=== PATIENT | female | born 1995 | race Caucasian/White ===

== ENCOUNTER 2019-07-03 16:18 | Inpatient (IN) | payer BC, OTHER ==
--- NOTE | 2019-07-03 17:46 | ED ---
Headache - HPI Summary HPI Summary: This patient is a 23 year old female presenting to [facility] with a chief complaint of headache since 5-6 days ago, and fever which began yesterday. She states she was seen by [facility] prior to the fever which told her it was a sinus infection. She went to Urgent Care today which gave her Augmentin. She has been taking the ABx a long with Tylenol and ibuprofen. She states her headache is across the forehead and at the back of the head. She reports fatigue, nasal discharge and n/v X1. She states she is UTD on all of her vaccines. Medications reviewed, allergies noted. - History Of Current Complaint Chief Complaint: EDHeadache Stated Complaint: FEVER/HEADACHE PER PT Time Seen by Provider: 07/03/19 17:39 Hx Obtained From: Patient Onset/Duration: Started days ago Location of Headache: Frontal, Occipital - Allergies/Home Medications Allergies/Adverse Reactions: Allergies Allergy/AdvReac Type Severity Reaction Status Date / Time No Known Allergies Allergy Verified 11/27/16 10:01 PMH/Surg Hx/FS Hx/Imm Hx Endocrine/Hematology History: Denies: Hx Diabetes Cardiovascular History: Denies: Hx Hypertension, Hx Pacemaker/ICD History: Denies: Hx Renal Disease Sensory History: Denies: Hx Hearing Aid Psychiatric History: Denies: Hx Panic Disorder Infectious Disease History: No Infectious Disease History: Denies: Traveled Outside the [place] in Last 30 Days - Family History Known Family History: Negative: Cardiac Disease - Social History Occupation: Student Lives: Dormitory/Roommates Alcohol Use: Occasionally Review of Systems Positive: Fever, Fatigue Positive: Nasal Discharge Positive: Vomiting, Nausea All Other Systems Reviewed And Are Negative: Yes Physical Exam - Summary Physical Exam Summary: Constitutional: Well-developed, Well-nourished, Alert. (-) Distressed Skin: Warm, Dry HENT: Normocephalic; Atraumatic Eyes: Conjunctiva normal Neck: (-) JVD, (-) Stridor, (-) Tracheal deviation. Limited ROM on flexion. Cardio: Rhythm regular, rate normal, Heart sounds normal; Intact distal pulses; Radial pulses are 2+ and symmetric. (-) Murmur Pulmonary/Chest wall: Effort normal. (-) Respiratory distress, (-) Wheezes, (-) Rales Abd: Soft, (-) tenderness, (-) Distension, (-) Guarding, (-) Rebound Musculoskeletal: (-) Edema Lymph: (-) Cervical adenopathy Neuro: Alert, Oriented x3 Psych: Mood and affect Normal Triage Information Reviewed: Yes Vital Signs On Initial Exam: Initial Vitals Temp Pulse Resp BP Pulse Ox 99.6 F 123 14 129/87 96 07/03/19 16:20 07/03/19 16:20 07/03/19 16:20 07/03/19 16:20 07/03/19 16:20 Vital Signs Reviewed: Yes Procedures - Sedation Patient Received Moderate/Deep Sedation with Procedure: No - Lumbar Puncture Lower Midline Iliac Crest Position: Sitting Aseptic Technique: Local Anesthesia, Lidocaine Anesthesia Used: 1.0% Lido Spinal Needle Used: 22 Gauge Lumbar Puncture Note: Kim needle. One attempt with clear fluid. Diagnostics - Vital Signs Vital Signs Temp Pulse Resp BP Pulse Ox 07/03/19 16:20 99.6 F 123 14 129/87 96 - Laboratory Result Diagrams: 07/03/19 18:05 07/03/19 18:05 Lab Statement: Any lab studies that have been ordered have been reviewed, and results considered in the medical decision making process. - Radiology CXR Radiology Interpretation Completed By: ED Physician Summary of Radiographic Findings: No acute process. Pending official radiologist report. Re-Evaluation - Re-Evaluation First Eval Re-Evaluation Time: 18:49 Change: Improved Comment: Heartrate is now 100 BPM. Patient states she feels better after receiving Benadryl and Reglan. Headache Course/Dx - Course Course Of Treatment: Patient is here with headache, cough, vomiting, fever over the past 5 days. Patient has been seen at [facility] and diagnosed with viral sinusitis. Patient was seen at urgent care today and diagnosed with bacterial sinusitis and started on Augmentin. Patient took 1 dose of that prior to arrival. Patient has Katie had monosodium that was not tested. Patient was tachycardic and febrile upon arrival but overall well-appearing. Patient did have some neck stiffness but had negative Brudzinski's or Kernig's sign. However, given patient's fever, headache and neck stiffness a workup was performed. Patient had blood performed which showed a white count of 13 and elevated CRP of 140. Patient had a chest x-ray which showed no evidence of pneumonia. Patient was given 2 L of IV fluid, Tylenol, Reglan, and Benadryl. Patient's heart rate was downtrending by the time of sign out. Patient had CSF studies sent as well which are pending. Patient sent to Dr. Schwartz pending CSF studies and patient improvement. - Diagnoses Provider Diagnoses: Fever, Headache, Cough, Tachycardia Discharge ED - Sign-Out/Discharge Documenting (check all that apply): Sign-Out Patient Signing out patient TO: Laurie Schwartz - At shift change 1900 pending LP results - Discharge Plan Referrals: No Primary Care Phys,NOPCP [Primary Care Provider] - - Attestation Statements Document Initiated by Scribe: Yes Documenting Scribe: Bienvenido Brown Provider For Whom Aziza is Documenting (Include Credential): Fran Oglesby MD Scribe Attestation: Bienvenido Lazo, scribed for Fran Oglesby MD on 07/03/19 at 1854. Scribe Documentation Reviewed: Yes Provider Attestation: The documentation as recorded by the Bienvenido gallegos accurately reflects the service I personally performed and the decisions made by , Fran Oglesby MD Status of Scribe Document: Viewed
[2019-07-03] MEDS ORDERED: diPHENhydraMINE IV* 50 MG/ML 1 ml VIAL (BENADRYL) IV ONE (17:49)
[2019-07-03] MEDS ORDERED: Acetaminophen TAB* 325 MG PO ONE (17:49)
[2019-07-03] MEDS ORDERED: Metoclopramide IV* 5 MG/ML 2 ML VIAL IV ONE (17:49)
[2019-07-03] MEDS ORDERED: NS 0.9% 1000 ML** 1,000 ML IV ONE ×2 (17:49→18:46)
[2019-07-03 18:21] LABS: ABS Lymphocytes 0.5 10^3/ul (1.0-4.8); ABS Monocytes 1.2 10^3/ul (0-0.8); ABS Neutrophils 11.5 10^3/ul (1.5-7.7); Hematocrit 41 % (35-47); Hemoglobin 14.1 g/dL (12.0-16.0); Lymphocyte % 3.9 %; Mean Corpuscular HGB Conc 34 g/dL (31-36); Mean Corpuscular Hemoglobin 31 pg (27-31); Mean Corpuscular Volume 89 fL (80-97); Mean Platelet Volume 9.6 fL (7.4-10.4); Platelet Count 203 10^3/uL (150-450); Red Blood Count 4.58 10^6 /uL (3.70-4.87); Red Cell Distribution Width 13 % (10-15); White Blood Count 13.2 10^3/uL (3.5-10.8)
[2019-07-03 18:40] LABS: Albumin 4.4 g/dL (3.2-5.2); Anion Gap 10 mmol/L (2-11); CO2 Carbon Dioxide 22 mmol/L (22-32); Calcium 9.4 mg/dL (8.6-10.3); Chloride 100 mmol/L (101-111); Potassium 3.8 mmol/L (3.5-5.0); Sodium 132 mmol/L (135-145)
[2019-07-03 18:46] LABS: ALT 11 U/L (7-52); AST 14 U/L (13-39); Albumin/Globulin Ratio 1.4 (1-3); Alkaline Phosphatase 73 U/L (34-104); BUN/Creatinine Ratio 4.9 (8-20); Blood Urea Nitrogen 4 mg/dL (6-24); C Reactive Protein 140.48 mg/L (<8.01); EGFR Non-African American 89.3 (>60); Globulin 3.2 g/dL (2-4); Glucose 138 mg/dL (70-100); Total Protein 7.6 g/dL (6.4-8.9)
[2019-07-03 18:48] LABS: Body Fluid Source Cerebral Spinal
[2019-07-03 18:51] LABS: HCG Pregnancy < 0.60 mIU/mL
[2019-07-03 19:04] LABS: Influenza A Molecular NEGATIVE (Negative); Influenza B Molecular NEGATIVE (Negative)
--- NOTE | 2019-07-03 19:07 | ED ---
Progress - Progress Note Progress Note: This patient was signed out from Dr. Oglesby to Dr. Schwartz at shift change at 1900, pending disposition, awaiting spinal tap results. Cerebral Spinal Fluid results obtained. Fluid WBC is 1552, CSF protein is 149, and CSF glucose is 54. The patient will be admitted with Dx of bacterial meningitis. Re-Evaluation - Re-Evaluation First Eval Re-Evaluation Time: 18:49 Change: Improved Comment: Heartrate is now 100 BPM. Patient states she feels better after receiving Benadryl and Reglan. Course/Dx - Course Course Of Treatment: 23 year old f signed out at change of shift with GRACIA, neck pain, and fever. LP results pending. CSF consistent with bacterial meningitis. Precautions initiated. Pt started on dexamethasone and recephin. Referred to hospitalist for admission. - Diagnoses Provider Diagnoses: Bacterial meningitis, Headache, Neck pain, Fever - Provider Notifications Discussed Care Of Patient With: Frannie Balderas Time Discussed With Above Provider: 19:51 Instructed by Provider To: Other - Discussed case with Dr. Balderas, who accepts pt for admission. Discharge ED - Sign-Out/Discharge Documenting (check all that apply): Patient Departure - Admit - Discharge Plan Condition: Stable Disposition: ADMITTED TO [facility] - Billing Disposition and Condition Condition: STABLE Disposition: Admitted to [facility] - Attestation Statements Document Initiated by Aziza: Yes Documenting Scribe: Xochilt Guevara Provider For Whom Aziza is Documenting (Include Credential): Dr. Laurie Schwartz MD Scribe Attestation: Xochilt Lazo scribed for Dr. Laurie Schwartz MD on 07/04/19 at 0602. Scribe Documentation Reviewed: Yes Provider Attestation: The documentation as recorded by the Xochilt gallegos accurately reflects the service I personally performed and the decisions made by me, Dr. Laurie Schwartz MD Status of Scribe Document: Viewed
[2019-07-03 19:11] LABS: CSF Glucose 54 mg/dL (40-70)
[2019-07-03 19:38] LABS: Body Fluid Mono 20 %
[2019-07-03] MEDS ORDERED: cefTRIAXone(*) 2 GM in NS 0.9% 100 ML* 100 ML IVPB ONE (19:46)
[2019-07-03] MEDS ORDERED: Dexamethasone IV* 4 MG/ML 5 ML VIAL (20 MG) IVPB ONE (19:49)
[2019-07-03] MEDS ORDERED: Ibuprofen TAB* 400 MG PO ONE (19:52)
[2019-07-03 19:55] LABS: Urine Appearance Clear; Urine Bilirubin Negative (Negative); Urine Blood 1+ (Negative); Urine Color Straw; Urine Glucose Negative (Negative); Urine Ketones 2+ (Negative); Urine Nitrite Negative (Negative); Urine Protein Negative (Negative); Urine Specific Gravity 1.005 (1.010-1.030); Urine Urobilinogen Negative (Negative)
[2019-07-03 19:59] LABS: Urine Bacteria Absent (Absent); Urine Red Blood Cell 1+(3-5/hpf) (Absent); Urine Squamous Epithelial Cell Present (Absent); Urine White Blood Cell Absent (Absent)
[2019-07-03] MEDS ORDERED: Dexamethasone IV* 4 MG/ML 1 ML (4 MG) IV SLOW PU ONE (20:00)
[2019-07-03] MEDS ORDERED: NS 0.9% 1000 ML** 1,000 ML IV SCH (20:15)
[2019-07-03] MEDS ORDERED: Vancomycin(*) 1,000 MG in NS 0.9% 250 ML* 250 ML IVPB ONE (20:17)
[2019-07-03 20:21] LABS: Urine Benzodiazepine Screen None Detected (None Detect); Urine Opiates Screen None Detected (None Detect)
[2019-07-03] MEDS ORDERED: ValACYclovir (*) 1 GM TAB PO ONE (21:00)
[2019-07-03] MEDS ORDERED: Acyclovir IV(*) 500 MG in NS 0.9% 100 ML* 100 ML IVPB SCH (21:00)
[2019-07-03] MEDS ORDERED: Vancomycin per Pharmacy* NOTE FOLLOW UP SCH (21:00)
--- NOTE | 2019-07-03 21:07 | HP ---
History of Present Illness - History of Present Illness Reason for Visit: GRACIA, fever History of Present Illness: 23 yo female presented with severe GRACIA and a fever. Severity of her GRACIA peaked last night but she has been having constitutional symptoms for a few days prior. [facility] and was told to have a viral infection. She arrived in the ED and had fever of 102. Meningeal signs noted which prompted an LP and early treatment with dexamethasone and Rocephin. LP came back positive. Significant other in the room with her, pt is a college student who lives in a house with 2 other roommates. - Past Social History Alcohol: Occassional Drugs: None Lives: Friends Domestic Violence: Negative Review of Systems - Measurements Intake and Output: Intake and Output Last 24 Hours 07/01/19 07/02/19 07/03/19 07/04/19 06:59 06:59 06:59 06:59 Intake Total 1999 Balance 1999 Weight 123 lb Intake: IV Fluids 1999 - Review of Systems Constitutional Symptoms: Positive: Weakness, Fatigue, Fever Negative: Weight Gain, Weight Loss, Night Sweats, Unexplained Falls, Other Dermatology: Negative: Normal, Rash, Skin Lesions, Cancer, Skin Lumps, Other HEENT: Negative: Normal, Change in Hearing, Vertigo, Dental Problems, Tinnitus, Sinus Problem, Other Eyes: Negative: Normal, Change in Vision, Double Vision, Eye Pain, Glaucoma, Cataract, Contacts or Glasses, Other Thyroid: Negative: Normal, Goiter, Thyroid Nodule, Cold Intolerance, Heat Intolerance , Sweatiness, Tremor, Frequent Defecation, Constipation, Palpitations, Primary Hypothyroidism, Primary Hyperthyroidism, Weight Loss, Weight Gain, Change in Skin/Hair, Change in Menstruation, Radiation Exposure, Other Pulmonary: Negative: Normal, Cough, Sputum, Hemoptysis, Wheezing, Respiratory Distress, Shortness of Breath, COPD, Asthma, Exercise Intolerance, Home Oxygen, Other Cardiology: Negative: Normal, Chest Pain, Shortness of Breath, Palpitations, Swelling of Ankles, Peripheral Vascular Dis, Edema, Faintness, Syncope, Claudication, Proximal NocturnalDyspnea, Orthopnoea, Other Gastroenterology: Negative: Normal, Abdominal Pain, Nausea, Vomiting, Anorexia, Indigestion, Difficulty Swallowing, Heartburn, Constipation, Diarrhea, Blood in Stools, Change in Bowel Habits, Haematemesis, Melena, Other Genital - Urinary: Negative: Normal, Dysuria, Hematuria, Polyuria, Nocturia, Other Musculoskeletal: Negative: Joint Pain, Joint Stiffness, Arthritis, Osteoporosis, Low Back Pain , Sciatica, Joint Deformities, Kyphoscoliosis, Other Endocrinology: Negative: Normal, Thyroid Problems, Adrenal Problems, Gonadal Problems, Family Hx Endocrine Disorders, Obesity, Diabetes Mellitus, Hyperglycemia, Hx Hypoglycemia, Diabetic Foot Ulcers, Calluses, Hirsutism, Menstrual Abnormalities , Polydipsia, Polyuria, Gonadal Problems, Gynecomastia, Pituitary disease, Other Hematologic/Lymphatic: Negative: Anemia, Easy Bruising, Hx Leukemia, Hx Lymphoma, Use of Anticoagulant, Use of Antiplatelet Drugs, Other Neurology: Positive: Headache, Migraines Negative: Normal, Change in Vision, Diplopia, Dizziness, Change in Balancing , Change in Coordination, Change in Memory, Change in Speech, Change in Sphincter Function, Change in Walking, Numbness\Paresthesiae, Unexplained Weakness, Hx of Stroke\TIA, Hx of Seizures, Other Psychiatry: Negative: Normal, Depression, Anxiety, Depressed Mood, Anhedonia, Sexual Dysfunction, Weight Change, Guilt Feelings, Tearfulness, Unusual Fatigue, Unusual Anxiety, Suicidal Ideation, Hypomania, Eating Disorders, Other Objective Active Medications: Acetaminophen (Tylenol Tab*) 650 mg PO Q4H PRN PRN Reason: MILD PAIN or TEMP > 100.4 Heparin Sodium (Porcine) (Heparin Vial(*)) 5,000 units SUBCUT Q8HR [facility] Sodium Chloride (Ns 0.9% 1000 Ml) 1,000 mls @ 1,000 mls/hr IV PER RATE [facility] Stop: 07/03/19 21:14 Vancomycin HCl 1,000 mg/ (Sodium Chloride) 250 mls @ 166.667 mls/hr IVPB ONCE ONE; Protocol Stop: 07/03/19 21:46 Pharmacy Consult (Vancomycin Per Pharmacy*) 1 note FOLLOW UP .VANC PER PHARMACY [facility]; Protocol Vital Signs - 8 hr 07/03/19 07/03/19 07/03/19 16:20 17:47 17:48 Temperature 99.6 F Pulse Rate 123 112 113 Respiratory 14 Rate Blood Pressure 129/87 138/91 (mmHg) O2 Sat by Pulse 96 100 100 Oximetry 07/03/19 07/03/19 07/03/19 17:51 18:00 18:27 Temperature 102 F Pulse Rate 108 Respiratory 26 23 Rate Blood Pressure 124/81 (mmHg) O2 Sat by Pulse 99 Oximetry 07/03/19 07/03/19 07/03/19 18:48 19:00 19:18 Temperature Pulse Rate 106 98 105 Respiratory 22 21 21 Rate Blood Pressure 121/85 121/79 (mmHg) O2 Sat by Pulse 99 100 100 Oximetry 07/03/19 07/03/19 07/03/19 19:40 19:48 20:00 Temperature 101.1 F Pulse Rate 99 117 Respiratory 27 16 Rate Blood Pressure 118/74 (mmHg) O2 Sat by Pulse 100 99 Oximetry Oxygen Devices in Use Now: None Appearance: NID Eyes: No Scleral Icterus, PERRLA Ears/Nose/Mouth/Throat: Clear Oropharnyx, Mucous Membranes Moist Neck: - - some nuchal rigidity Respiratory: Symmetrical Chest Expansion and Respiratory Effort, Clear to Auscultation, Clear to Percussion Cardiovascular: NL Sounds; No Murmurs; No JVD Abdominal: NL Sounds; No Tenderness; No Distention, No Hepatosplenomegaly Lymphatic: No Cervical Adenopathy Extremities: No Edema, No Clubbing, Cyanosis Skin: No Rash or Ulcers Neurological: Alert and Oriented x 3, NL Sensation, NL Gait, NL Muscle Strength and Tone Result Diagrams: 07/03/19 18:05 07/03/19 18:05 Microbiology and Other Data: Microbiology 07/03/19 18:18 CSF Gram Stain (Tube 3) - Preliminary Cerebral Spinal Fluid Assess/Plan/Problems-Billing Assessment: - Patient Problems (1) Acute bacterial meningitis Current Visit: Yes Status: Acute Code(s): G00.9 - BACTERIAL MENINGITIS, UNSPECIFIED SNOMED Code(s): 45570965 Comment: LP likely bacterial infection. No evidence of neurological dysfunction Steroids, vanco, ceftriaxone and acyclovir pending final LP results. NPO except for meds. Will have her on bedrest following LP (2) Full code status Current Visit: Yes Status: Acute Code(s): Z78.9 - OTHER SPECIFIED HEALTH STATUS SNOMED Code(s): 837799332 (3) DVT prophylaxis Current Visit: Yes Status: Acute Code(s): Z29.9 - ENCOUNTER FOR PROPHYLACTIC MEASURES, UNSPECIFIED SNOMED Code(s): 029442701
[2019-07-03] MEDS: Heparin VIAL(*) 5000 UNITS/ML VIAL (FIVE THOUSAND) SUBCUT SCH (22:42)
[2019-07-04] MEDS: Acetaminophen TAB* 325 MG PO PRN ×3 (02:59→21:10)
[2019-07-04] MEDS: Vancomycin(*) 1,000 MG in NS 0.9% 250 ML* 250 ML IV SCH ×3 (05:39→21:09)
[2019-07-04] MEDS: Heparin VIAL(*) 5000 UNITS/ML VIAL (FIVE THOUSAND) SUBCUT SCH (05:39)
[2019-07-04] MEDS: ValACYclovir (*) 1 GM TAB PO SCH ×3 (05:40→23:06)
[2019-07-04 07:10] LABS: ABS Lymphocytes 0.8 10^3/ul (1.0-4.8); ABS Neutrophils 10.8 10^3/ul (1.5-7.7); Hematocrit 37 % (35-47); Hemoglobin 12.5 g/dL (12.0-16.0); Mean Corpuscular HGB Conc 34 g/dL (31-36); Mean Corpuscular Hemoglobin 30 pg (27-31); Mean Corpuscular Volume 89 fL (80-97); Mean Platelet Volume 9.9 fL (7.4-10.4); Platelet Count 186 10^3/uL (150-450); Red Cell Distribution Width 13 % (10-15); White Blood Count 12.6 10^3/uL (3.5-10.8)
[2019-07-04 07:22] LABS: Albumin 3.7 g/dL (3.2-5.2); Calcium 8.9 mg/dL (8.6-10.3); Potassium 3.8 mmol/L (3.5-5.0); Total Bilirubin 0.2 mg/dL (0.2-1.0)
[2019-07-04 07:28] LABS: Albumin/Globulin Ratio 1.4 (1-3); BUN/Creatinine Ratio 7.9 (8-20); EGFR African American 144.3 (>60); EGFR Non-African American 119.3 (>60); Globulin 2.6 g/dL (2-4); Total Protein 6.3 g/dL (6.4-8.9)
[2019-07-04] MEDS: cefTRIAXone(*) 2 GM in NS 0.9% 100 ML* 100 ML IVPB SCH ×2 (10:17→22:51)
--- NOTE | 2019-07-04 12:02 | PN ---
Subjective Date of Service: 07/04/19 Interval History: Patient continues to have headache, bifrontal, neck stiffness. Denies fever. Has some photophobia. Family History: Unchanged from Admission Social History: Findings - Senior at , env studies. Lives with 2 other students in house, visited other friends ar for dinner Past Medical History: Unchanged from Admission Objective Active Medications: Current Medications Acetaminophen (Tylenol Tab*) 650 mg PO Q4H PRN PRN Reason: MILD PAIN or TEMP > 100.4 Last Admin: 07/04/19 11:27 Dose: 650 mg Heparin Sodium (Porcine) (Heparin Vial(*)) 5,000 units SUBCUT Q8HR [facility] Last Admin: 07/04/19 05:39 Dose: 5,000 units Ceftriaxone Sodium 2 gm/ (Sodium Chloride) 100 mls @ 200 mls/hr IVPB Q12H [facility] Last Admin: 07/04/19 10:17 Dose: 200 mls/hr Vancomycin HCl 1,000 mg/ (Sodium Chloride) 250 mls @ 166.667 mls/hr IV Q8H [facility] Last Admin: 07/04/19 05:39 Dose: 166.667 mls/hr Valacyclovir HCl (Valtrex 1 Gm(*)) 2 gm PO Q8HR [facility] Last Admin: 07/04/19 05:40 Dose: 2 gm Vital Signs - 8 hr 07/04/19 07/04/19 07/04/19 04:00 04:57 07:39 Temperature 38.2 C 37.7 C Pulse Rate 108 Respiratory 16 16 Rate Blood Pressure 113/69 (mmHg) O2 Sat by Pulse 100 Oximetry 07/04/19 08:23 Temperature 36.9 C Pulse Rate 89 Respiratory 17 Rate Blood Pressure 103/58 (mmHg) O2 Sat by Pulse 100 Oximetry Oxygen Devices in Use Now: None Appearance: alert, no distress Eyes: No Scleral Icterus, PERRLA Ears/Nose/Mouth/Throat: NL Teeth, Lips, Gums, Clear Oropharnyx Neck: NL Appearance and Movements; NL JVP, Trachea Midline Respiratory: Symmetrical Chest Expansion and Respiratory Effort, Clear to Auscultation Cardiovascular: NL Sounds; No Murmurs; No JVD, RRR Abdominal: NL Sounds; No Tenderness; No Distention, No Hepatosplenomegaly Neurological: Alert and Oriented x 3, - - positive Brudzinski's sign Lines/Tubes/Other Access: Clean, Dry and Intact Peripheral IV Nutrition: Taking PO's Result Diagrams: 07/04/19 06:44 07/04/19 06:44 Additional Lab and Data: Laboratory Tests 07/03/19 07/03/19 18:18 18:18 Fluid Source Cerebral spinal Fluid Color Colorless Fluid Appearance Cloudy Fluid WBC 1552 H* Fluid RBC 32 Fluid Tot Cell Count 100 Fluid Neutrophils 74 Fluid Lymphocytes 6 Fluid Monocytes 20 CSF Glucose 54 CSF Total Protein 149 H Microbiology and Other Data: Microbiology 07/03/19 18:18 CSF Gram Stain (Tube 3) - Preliminary Cerebral Spinal Fluid Assess/Plan/Problems-Billing Assessment: 23 year old with classic bacterial meningitis presentation, CSF pleocytosis - Patient Problems (1) Acute bacterial meningitis Current Visit: Yes Status: Acute Priority: Medium Code(s): G00.9 - BACTERIAL MENINGITIS, UNSPECIFIED SNOMED Code(s): 75661553 Comment: -No evidence of neurological dysfunction -responding well to ceftriaxone, vanco. -Using oral valcyclovir due to shortage of IV acyclovir -Will discuss whether steroids indicated with ID and neurology. (2) DVT prophylaxis Current Visit: Yes Status: Acute Priority: Low Code(s): Z29.9 - ENCOUNTER FOR PROPHYLACTIC MEASURES, UNSPECIFIED SNOMED Code(s): 002442999 Comment: low risk, heparin DCed Status and Disposition: inpatient
--- NOTE | 2019-07-04 14:23 | PN ---
Progress Note - Progress Note Date of Service: 07/04/19 Note: Spoke with micro lab, 2 bottles blood cultures growing gram neg coccobacilli, possible Haemophilus influenza or pseudomonas or HACEK organism. Spoke with Dr. King mason dexamethasone, he will see patient for consult. Spoke with Dr. Reno re ID consult, he advised continue dexamethasone since it was started in ED and it may prevent complications of H flu.
[2019-07-04] MEDS ORDERED: Iohexol 300* (CONTRAST) 10 ML SDV IV ONE (15:55)
[2019-07-04] MEDS: Dexamethasone IV* 4 MG/ML 1 ML (4 MG) IV SLOW PU SCH ×2 (16:26→21:11)
--- NOTE | 2019-07-04 21:37 | CONS ---
CC: [facility]; George Reno MD; Aram Parker MD * CONSULTATION REPORT: DATE OF CONSULT: 07/04/19 DATE OF ADMISSION: 07/03/19 PRIMARY CARE PROVIDER: Unknown. REASON FOR CONSULTATION: Meningitis. HISTORY OF PRESENT ILLNESS: Ms. Wharton is a very nice 23-year-old female who is currently a senior at [employer]. She reports developing what she felt was a sinus infection about a week ago. The symptoms persisted. She was initially seen at [facility] and it was felt that she likely had a viral infection. She subsequently continued to develop pain and developed fever on Friday. Yesterday, she presented to the ER with a fever of up to 102. She noted worsening headache, it was frontal in nature. She also noted neck stiffness, some photophobia. She did have some vomiting several days ago and some nausea yesterday. She notes no sick contacts that she is aware of, no insect bite, no animal bites, no recent travel. Other than the sinus infection , she denies any recent ear infections or sore throat. In the ER, an LP was done. The LP showed a white count of 1552, 32 RBCs, total cell count of 100, neutrophils 74%, lymphocytes 6, monocytes 20, protein of 149, glucose of 54. In addition, she had blood cultures drawn yesterday which are growing gram- negative coccobacilli. In addition, while her Gram stain on the CSF was negative for organisms, she does have Haemophilus influenzae 3+ in the spinal fluid. She was admitted with an elevated white count of 12.6. Urine was positive for 2+ ketones, 1+ blood, 1+ rbc's. Her influenza A and B rapid tests were negative. The patient reports no focal numbness, tingling, or weakness. She reports no seizure-like activity. She reports no tingling, numbness, word finding difficulties, or other neurologic symptoms other than the headache. She states that the headache is much improved this afternoon. This morning, she states that it was waxing and waning from a 2 to 3 to a 7 or 8; currently, it is a 2 to 3. She does have some pain with flexion and extension of her neck. She notes no rashes, no subungual hemorrhages. She denies any other significant past medical history. PAST MEDICAL HISTORY: As noted above. She does take control pills. MEDICATIONS: At home include Loestrin 1 daily. Medications started in the ER include: 1. Dexamethasone 4 mg IV q.6 hours. 2. Ceftriaxone 2 g q.12 hours. 3. Vancomycin 1000 mg q.8 hours. 4. Valacyclovir 2 g p.o. q.8 hours. ALLERGIES: She has no known drug allergies. SOCIAL HISTORY: She is a senior at [employer]. She drinks alcohol occasionally. No drug use. No smoking. She lives in a dorm with several friends. REVIEW OF SYSTEMS: In 14-organ systems is as noted above, otherwise negative. PHYSICAL EXAM: Temperature this morning of 108. Her T-max since admission has been 102. Her most recent temperature is 99.7. Heart rate of 89 to 108, respiratory rate of 16 to 17, O2 saturation 98% to 100%, blood pressure 103/58 to 113/69. In general, she is a well-nourished, well-developed female. She is in no acute distress. She is sitting in her room. Her head is up. The lights are off, but she does not appear to be in any great discomfort. She smiles. She is talking to her parents on the computer by [employer]. She is pleasant and answers all questions appropriately. HEENT: She is normocephalic, atraumatic. Sclerae are anicteric. Mucous membranes are moist. Oropharynx is clear. Nares are patent. Neck is stiff. She has some pain with flexion and extension. She has no pain with flexion at her knees or extension of her leg. She has no pain with abrupt upward movements of her feet. No carotid bruits. Chest: Clear to auscultation bilaterally. Cardiovascular: Regular rate and rhythm. Abdomen is nontender. Extremities: No clubbing, cyanosis, or edema. Her skin is warm and dry. There are no lesions or rashes present. No hemorrhaging present. On neurologic exam, she is awake, alert, and oriented x3. Her speech is fluent. There is no dysarthria. Repetition is intact. Recall of recent and remote events is intact. Vocabulary is intact. Mood is dysthymic. Affect, mood congruent. Cranial nerves: Pupils are equally round and reactive to light and accommodation. Extraocular muscles are intact. There is no diplopia. No nystagmus. Visual chapa are full to confrontation. Her face is symmetric. Her facial sensation is intact to light touch. Her hearing is intact bilaterally. No tinnitus. Her palate raises symmetrically. Her tongue is midline. Motor Exam: She spontaneously moves all extremities antigravity. There is no drift. 5/5 throughout. Tone is normal. Finger-to- nose, rapid alternating movements are intact without dysdiadochokinesia or ataxia. There is no resting tremor. There is no intention or postural tremor. DTRs are 2+ in the upper extremities, biceps, and brachioradialis, 3+ at the patella bilaterally, 2+ at the ankles. Equivocal Babinski's bilaterally. Sensation is intact to light touch and pinprick throughout. There are no focal deficits. While I did not test gait, she has been getting out and walking around. She had no papilledema on funduscopic examination. DIAGNOSTIC STUDIES/LAB DATA: CSF studies as noted above. She also had other than white count of 12.6 with absolute neutrophils of 10.8, absolute lymphocytes of 0.8, absolute monocytes of 1.0. Her CBC with diff was normal. Comprehensive metabolic profile this morning with a BUN of 5, glucose of 134, AST of 10. Her C-reactive protein on admission was 140.48. Total protein of 6.3. Beta hCG of less than 0.60. Sodium yesterday was 132, now 136. Potassium of 3.8. Imaging: She did have a prior brain MRI from 12/03/16, show mild sinus mucosal inflammatory disease with air-fluid level in the left maxillary sinus. In a correct clinical setting, this may represent acute sinusitis. Otherwise, unremarkable MRI of the brain. I have ordered a CT scan of the head. She had a chest x-ray done yesterday which showed no active cardiopulmonary disease. ASSESSMENT AND PLAN: Ms. Wharton is a 23-year-old female with no significant past medical history, on control pills. She is a [employer] senior who presents with several-day history of worsening headaches, some fevers up to 102 , neck pain and stiffness, photophobia, some nausea and vomiting, presented to the hospital where an LP showed significantly elevated white count, elevated protein, normal glucose, subsequently cultures have grown H. flu in the spinal fluid and suspected gram- negative coccobacilli in the blood. All of this is consistent with H. flu meningitis. She was started on empiric therapy in ER with vanc, ceftriaxone, and valacyclovir. There is a critical shortage of acyclovir in the country, but she was placed on valacyclovir. She was also started on dexamethasone. ID has been consulted and will see the patient tomorrow. Currently, she is improving. She looks fairly good. She is pleasant , smiling. She does not appear to be in any major discomfort. The pain is improved. She has no focal neurologic deficits and seems to be doing well. For now, I would continue her triple antibiotic therapy. We will need to make sure that HSV was sent on the spinal fluid. Lyme C and S is pending and HSV is pending in the fluid as well. I have ordered a CT of the brain with and without contrast to make sure that there is no structural lesions or abscesses that may be contributing to her symptoms. The evidence on dexamethasone is unclear. Typically, once an organism is obtained, assuming it is not strep pneumo, then dexamethasone is usually discontinued. With that said, she did receive dexamethasone at the time of her antibiotics and the dexamethasone had been shown in general to help prevent some of the neurologic complications associated with meningitis. I think for now it is okay to continue the dexamethasone as an adjunct therapy. This is something we can discuss with ID tomorrow, but if in fact H. flu is confirmed in the blood and spinal fluid, I would consider stopping the steroids after a day or two. Otherwise, treatment is going to be symptomatic. I would make sure she is hydrated, control her pain , treat her fevers. Infectious Disease will remain on board. Neurology will continue to follow closely and make further recommendations as necessary. Dr. Hallie Monique will be coming on service tomorrow and I will sign off to him. Thank you for the opportunity to participate in the care of this very interesting patient. [id number]/[facility] #: [id number] [facility]ITAL[facility]
[2019-07-05] MEDS ORDERED: Melatonin 3 MG TAB PO ONE (02:31)
[2019-07-05] MEDS: Dexamethasone IV* 4 MG/ML 1 ML (4 MG) IV SLOW PU SCH ×2 (02:50→09:38)
[2019-07-05] MEDS: Vancomycin(*) 1,000 MG in NS 0.9% 250 ML* 250 ML IV SCH (05:29)
[2019-07-05] MEDS: ValACYclovir (*) 1 GM TAB PO SCH (05:34)
[2019-07-05] MEDS: Acetaminophen TAB* 325 MG PO PRN (06:25)
[2019-07-05 07:57] LABS: ABS Lymphocytes 1.1 10^3/ul (1.0-4.8); ABS Monocytes 0.5 10^3/ul (0-0.8); ABS Neutrophils 12.3 10^3/ul (1.5-7.7); Hematocrit 37 % (35-47); Hemoglobin 12.6 g/dL (12.0-16.0); Lymphocyte % 8.1 %; Mean Corpuscular HGB Conc 34 g/dL (31-36); Mean Corpuscular Hemoglobin 30 pg (27-31); Mean Corpuscular Volume 89 fL (80-97); Mean Platelet Volume 9.5 fL (7.4-10.4); Platelet Count 239 10^3/uL (150-450); Red Blood Count 4.18 10^6 /uL (3.70-4.87); Red Cell Distribution Width 13 % (10-15)
--- NOTE | 2019-07-05 08:00 | PN ---
Hospitalist Progress Note Date of Service: 07/05/19 S/IE: Tata Wharton is a 23 year-old woman with no significant medical history who presented to the ED on Friday evening (07/03/19) with a CC of severe headache and fever. She was admitted on Friday evening and has been diagnosed with and is being treated for acute bacterial meningitis. This is hospital day 3. There were no acute overnight events. Feeling much better. Still complaining of mild neck stiffness, headache and back soreness. Overall pain rated 4/10. No fever / chills since yesterday. No nausea / vomiting. Inquiring about whether or not her boyfriend should be receiving prophylactic medication. Per Dr. Reno (ID nursing consultant), close contact prophylaxis is not necessary in this case of H. Influenza meningitis with all close contacts being healthy young adults. Dr. Reno ordered a midline catheter be placed to facilitate 10 days of home ceftriaxone infusions and advised that vancomycin, valacyclovir and dexamethasone should be stopped now that the infection is confirmed to be H. Influenzae. Patient has good understanding of her condition, treatment regimen and prognosis. She is concerned about missing school and upcoming exams and was advised that she would need to contact her school directly regarding her absence and that she will be provided with a doctor's note. Likely looking at discharge tomorrow provided condition continues to improve, midline is placed and necessary arrangements for home IV ABX infusions are made. O: PE: 3 Temp Pulse Resp BP Pulse Ox 97.9 F 88 20 125/70 99 07/05/19 09:36 07/05/19 09:36 07/05/19 09:36 07/05/19 09:36 07/05/19 09:36 General: Resting in bed, AAOx4, not in acute distress. Pleasantly cooperates with interview and examination. Skin warm and dry. HEENT: Head normocephalic, atraumatic. Hearing grossly normal. PERRLA. EOMI. Vision grossly normal. Nares patent. Oral mucosa pink and moist. Good dentition. Uvula midline. No thyromegaly or thyroid nodules. No lymphadenopathy. Trachea midline. No JVD. Chest: Breathing unlabored with normal symmetric chest wall motion. Lungs clear to auscultation b/l. Normal heart rhythm. Normal S1/S2. No murmur. Abdomen: Soft, non-distended, non-tender. Some mild general discomfort to palpation. Positive bowel sounds. Extremities: UE and LE distal CMS intact b/l. 5/5 strength on hand golf caddy and hip/ plantar/dorsi flexion. No edema. Recent Labs: 3 07/05/19 07/05/19 07:37 07:37 WBC 14.0 H RBC 4.18 Hgb 12.6 Hct 37 MCV 89 MCH 30 MCHC 34 RDW 13 Plt Count 239 MPV 9.5 Neut % (Auto) 87.9 Lymph % (Auto) 8.1 [place] % (Auto) 3.9 Eos % (Auto) 0.0 Baso % (Auto) 0.1 Absolute Neuts (auto) 12.3 H Absolute Lymphs (auto) 1.1 Absolute Monos (auto) 0.5 Absolute Eos (auto) 0.0 Absolute Basos (auto) 0.0 Absolute Nucleated RBC 0.0 Nucleated RBC % 0.0 Sodium 140 Potassium 3.9 Chloride 110 Carbon Dioxide 23 Anion Gap 7 BUN 6 Creatinine 0.62 Est GFR ( Amer) 147.0 Est GFR (Non-Af Amer) 121.5 BUN/Creatinine Ratio 9.7 Glucose 162 H Calcium 9.2 C-Reactive Protein 118.99 H 3 07/04/19 07/04/19 06:44 06:44 WBC 12.6 H RBC 4.10 Hgb 12.5 Hct 37 MCV 89 MCH 30 MCHC 34 RDW 13 Plt Count 186 MPV 9.9 Neut % (Auto) 85.7 Lymph % (Auto) 6.0 [place] % (Auto) 8.1 Eos % (Auto) 0.0 Baso % (Auto) 0.2 Absolute Neuts (auto) 10.8 H Absolute Lymphs (auto) 0.8 L Absolute Monos (auto) 1.0 H Absolute Eos (auto) 0.0 Absolute Basos (auto) 0.0 Absolute Nucleated RBC 0.0 Nucleated RBC % 0.0 Sodium 136 Potassium 3.8 Chloride 108 Carbon Dioxide 22 Anion Gap 6 BUN 5 L Creatinine 0.63 Est GFR ( Amer) 144.3 Est GFR (Non-Af Amer) 119.3 BUN/Creatinine Ratio 7.9 L Glucose 134 H Calcium 8.9 Total Bilirubin 0.20 AST 10 L ALT 8 Alkaline Phosphatase 56 Total Protein 6.3 L Albumin 3.7 Globulin 2.6 Albumin/Globulin Ratio 1.4 3 07/03/19 18:34 Influenza A (Rapid) Negative Influenza B (Rapid) Negative 3 07/03/19 19:30 Urine Opiates Screen None detected Ur Barbiturates Screen None detected Ur Phencyclidine Scrn None detected Ur Amphetamines Screen None detected U Benzodiazepines Scrn None detected Urine Cocaine Screen None detected U Cannabinoids Screen None detected 3 07/03/19 07/03/19 18:18 18:18 Fluid Source Cerebral spinal Fluid Volume 3.0 Fluid Color Colorless Fluid Appearance Cloudy Fluid WBC 1552 H* Fluid RBC 32 Fluid Tot Cell Count 100 Fluid Neutrophils 74 Fluid Lymphocytes 6 Fluid Monocytes 20 Fluid Cell Count Rvw By Pending Fluid Comment CSF Cell Count Tube # 4 CSF Glucose 54 CSF Total Protein 149 H 3 07/03/19 19:30 Urine Color Straw Urine Appearance Clear Urine pH 6.0 Ur Specific E[place] 1.005 L Urine Protein Negative Urine Ketones 2+ A Urine Blood 1+ A Urine Nitrate Negative Urine Bilirubin Negative Urine Urobilinogen Negative Ur Leukocyte Esterase Negative Urine WBC (Auto) Absent Urine RBC (Auto) 1+(3-5/hpf) A Ur Squamous Epith Cells Present A Urine Bacteria Absent Urine Glucose Negative 3 07/03/19 18:05 Beta HCG, Quant < 0.60 3 07/03/19 07/03/19 18:05 18:05 WBC 13.2 H RBC 4.58 Hgb 14.1 Hct 41 MCV 89 MCH 31 MCHC 34 RDW 13 Plt Count 203 MPV 9.6 Neut % (Auto) 86.9 Lymph % (Auto) 3.9 [place] % (Auto) 9.1 Eos % (Auto) 0.0 Baso % (Auto) 0.1 Absolute Neuts (auto) 11.5 H Absolute Lymphs (auto) 0.5 L Absolute Monos (auto) 1.2 H Absolute Eos (auto) 0.0 Absolute Basos (auto) 0.0 Absolute Nucleated RBC 0.0 Nucleated RBC % 0.0 Sodium 132 L Potassium 3.8 Chloride 100 L Carbon Dioxide 22 Anion Gap 10 BUN 4 L Creatinine 0.81 Est GFR ( Amer) 108.0 Est GFR (Non-Af Amer) 89.3 BUN/Creatinine Ratio 4.9 L Glucose 138 H Calcium 9.4 Total Bilirubin 0.30 AST 14 ALT 11 Alkaline Phosphatase 73 C-Reactive Protein 140.48 H Total Protein 7.6 Albumin 4.4 Globulin 3.2 Albumin/Globulin Ratio 1.4 CSF Gram Stain / Culture (07/04/19): Stain: 4+ Neutrophils, 4+ Nucleated Cells Preliminary Culture: 3+ Haemophilus Influenzae, beta lactamase negative Venous Blood Cultures (07/04/19): Aerobic Stain: Gram negative coccobacilli Anaerobic Stain: Gram negative coccobacilli Brain CT w/wo Contrast (07/04/19): Indication: Headaches. Meningitis. CT of the brain performed without and with IV contrast. Ventricular structures are midline. No midline shift is noted. The extra-axial spaces are unremarkable. There is no evidence of intracranial mass or hemorrhage. No evidence of significant meningeal enhancement is noted although prominent vessels are noted throughout the brain. Mastoid air cells and paranasal sinuses are otherwise unremarkable. IMPRESSION: No intracranial mass or hemorrhage is noted. CXR (07/03/19): Indication: Evaluate for pneumonia. Single frontal view of the chest performed at 1848 hours was reviewed. No prior study is available for comparison. No mediastinal shift is noted. Heart is of normal size and configuration. Lung chapa appear clear. IMPRESSION: NO ACTIVE CARDIOPULMONARY DISEASE IS NOTED. Current Medications: Acetaminophen (Tylenol Tab*) 650 mg PO Q4H PRN PRN Reason: MILD PAIN or TEMP > 100.4 Last Admin: 07/05/19 06:25 Dose: 650 mg Ceftriaxone Sodium 2 gm/ (Sodium Chloride) 100 mls @ 200 mls/hr IVPB Q12H JESSICA Last Admin: 07/05/19 09:38 Dose: 200 mls/hr Recent Orders: 07/04/19 13:58 Consult to Provider Urgent 07/05/19 09:36 Midline Insert/Assess Routine A/I: 23 year-old woman with no significant medical history who presented with a CC of severe headache and fever found to have acute bacterial meningitis confirmed by CSF culture positive for haemophilus influenzae expected to d/c tomorrow with home IV ABX regimen P: Acute Bacterial Meningitis: CSF and serum viral tests sent out HSV and Lyme tests ordered Treated with ceftriaxone, vancomycin, dexamethasone and valacyclovir with good response CSF culture confirmed H. Influenzae meningitis D/c vancomycin, valacyclovir and dexamethasone in light of confirmation of H. Influenzae per Dr. Reno D/c isolation precautions Plan to place midline catheter and d/c to home, likely tomorrow, with 10 days of IV ceftriaxone DVT Prophylaxis: Low risk, heparin was d/c Continue MITCHEL stockings Ambulation as tolerated
[2019-07-05 08:05] LABS: Calcium 9.2 mg/dL (8.6-10.3); Potassium 3.9 mmol/L (3.5-5.0)
[2019-07-05 08:11] LABS: BUN/Creatinine Ratio 9.7 (8-20); C Reactive Protein 118.99 mg/L (<8.01); EGFR Non-African American 121.5 (>60)
[2019-07-05] MEDS: cefTRIAXone(*) 2 GM in NS 0.9% 100 ML* 100 ML IVPB SCH (09:38)
--- NOTE | 2019-07-05 11:19 | CONS ---
CONSULTATION REPORT: DATE OF CONSULT: 07/05/19 REQUESTING PHYSICIAN: Dr. Marley. CONSULTING SERVICE: Infectious Disease. REASON FOR CONSULTATION: Bacterial meningitis. IMPRESSION: 1. Bacterial meningitis due to Haemophilus influenzae, overall improving and without focal neurologic deficits. 2. No symptoms of cerebrospinal fluid leak or skull fracture in the last couple of months. RECOMMENDATIONS: Stop vancomycin and Valtrex, continue ceftriaxone 2 g twice daily for 10 more days to complete two weeks. She has Haemophilus in 2/4 blood culture bottles as well as spinal fluid, however, it is a beta-lactamase negative, I don't think infective endocarditis is a consideration without peripheral stigmata, another source and no murmur. She has been on corticosteroids since the start of antibiotics; however, now we know she has Haemophilus and not pneumococcus, so we stopped dexamethasone. 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 She had been seen by her primary provider and then by urgent care, who started her on oral antibiotics but because of worsening symptoms and severe headache, she came to the ER on the 07/03/19. CT of the brain showed no acute process. She had a lumbar puncture that showed 1500 white cells, 70% neutrophils, glucose normal at 50, protein elevated at 150. Blood cultures 2/4 are growing gram-negative bacilli and spinal fluid is growing Haemophilus influenzae. She was started on dexamethasone, vancomycin, ceftriaxone, and Valtrex. We stopped the vancomycin and Valtrex this morning. Her headache has overall improved. Her appetite is coming around. She has been up walking around the room. No weakness or numbness. No changes in her hearing or vision. Her headache is much milder than she came to the hospital. She had a little bit this morning and a dose of Tylenol took care of that. She had a fall about a couple of years ago at the back of her head, had a concussion but no spinal fluid leak and no prior meningitis episodes. No family history of bacterial meningitis. She has not had other hospitalizations due to infection. PAST MEDICAL HISTORY: None. MEDICATIONS: 1. Ceftriaxone 2 g twice a day. 2. Vancomycin. 3. Valtrex. 4. Tylenol as needed. 5. Dexamethasone 4 mg IV every 6 hours. ALLERGIES: No known drug allergies. FAMILY HISTORY: No recurrent infections. No bacterial meningitis. SOCIAL HISTORY: She is a senior at [employer], originally from [place], [place]. No travel or sick contacts. Does live with a couple of roommates, all over the age of 18. ALLERGIES: No known drug allergies. REVIEW OF SYSTEMS: All negative except as noted above to a 14-point review. PHYSICAL EXAM: Vital Signs: Temperature 37, heart rate 80, respiratory rate 18 , blood pressure 108/61, oxygen saturation 99% on room air. In general, she is awake, not in distress, appears comfortable. HEENT: There is no conjunctival hemorrhage. Oropharynx without lesions. Neck: Supple without mass. Heart: Regular rate and rhythm without murmurs, rubs or gallops. Lungs: Clear to auscultation bilaterally. Abdomen: Soft, nontender, nondistended. There are bowel sounds present. Skin: There is no rash or splinter hemorrhage. Musculoskeletal: There is no spine tenderness to palpation or joint synovitis. Neurologic: Her sensation is intact to light touch in the upper and lower extremities bilaterally. Strength is 5/5 in the biceps, triceps, wrist flexors , extensors, quadriceps, tibialis anterior, gastrocnemius bilaterally. There is no lower extremity clonus bilaterally. DIAGNOSTIC STUDIES/LAB DATA: White blood cell count 14, hemoglobin 12, platelets 239. Creatinine 0.6. CRP 118. Please see impression and recommendations outlined above. Thank you for asking me to see Ms. Wharton in consultation. TIME SPENT: 70 minutes floor time, greater than 50% [id number] in counseling regarding diagnosis, treatment, and discussion with the patient's parents about prognosis. [id number]/[facility] #: [id number] [facility]ENTER[facility]ario
[2019-07-05] MEDS ORDERED: Vancomycin Trough Check NOTE FOLLOW UP ONE (12:30)
--- NOTE | 2019-07-05 14:14 | PN ---
Subjective Date of Service: 07/05/19 Length of Stay: 2 Days Neurology is following for meningitis. Interval History: She has less headaches today. The headache is mostly cervicogenic, slightly radiates to the neck, pressure like sensation, and is 2/10 in severity. The headache does not change with position. She denied any visual disturbance or hearing loss. She has not had coffee today and feels that the headache could be related to caffeine withdraw. Review of Systems: Denied CP, SOB, or palpitations. Family History: Unchanged from Admission Social History: Findings - Senior at , env studies. Lives with 2 other students in house, visited other friends friday for dinner Past Medical History: Unchanged from Admission Objective Active Medications: Acetaminophen (Tylenol Tab*) 650 mg PO Q4H PRN PRN Reason: MILD PAIN or TEMP > 100.4 Last Admin: 07/05/19 06:25 Dose: 650 mg Ceftriaxone Sodium 2 gm/ (Sodium Chloride) 100 mls @ 200 mls/hr IVPB Q12H JESSICA Last Admin: 07/05/19 09:38 Dose: 200 mls/hr Vital Signs 07/04/19 07/04/19 07/05/19 15:57 20:00 00:19 Temperature 98.1 F 98.9 F 98.7 F Pulse Rate 89 90 71 Respiratory 16 20 18 Rate Blood Pressure 114/67 114/59 97/54 (mmHg) O2 Sat by Pulse 100 99 98 Oximetry 07/05/19 07/05/19 07/05/19 03:39 08:00 09:36 Temperature 98.8 F 97.9 F Pulse Rate 84 88 Respiratory 18 20 20 Rate Blood Pressure 108/61 125/70 (mmHg) O2 Sat by Pulse 99 99 Oximetry Intake and Output Last 24 Hours 07/03/19 07/04/19 07/05/19 07/06/19 06:59 06:59 06:59 06:59 Intake Total 2239 1984 120 Balance 2239 1984 120 Weight 124 lb 124 lb Intake: IV Fluids 1999 415 ABX - CEFTRIAXONE 105 ABX - VANCOMYCIN 280 NS (0.9%) 30 IVPB 625 ABX - CEFTRIAXONE 100 ABX - VANCOMYCIN 525 Oral 240 945 120 Other: Estimated Void Large Medium # Bowel Movements 0 0 # Voids 1 1 Oxygen Devices in Use Now: None Neurology Exam: General: Well nourished, well developed, and in no acute distress HEENT: Normocephelic/atraumatic, sclera anicteric, mucous membranes moist. No nuchal rigidity. Negative Brudzinski. Extremities: No clubbing, cyanosis, or edema Neurological Findings: Awake, alert, and oriented to person, place, and time. Speech: fluent without dysarthria, repetition intact Cranial Nerve: PERRL, EOM intact, VFF, no nystagmus, face symmetric bilaterally , facial sensation intact, hearing intact to finger rub bilaterally, palate elevates symmetrically, tongue midline, SCM and Trapezius s/s. Motor: s/s throughout, proximal and distal extremities x4 tone/bulk normal Sensation: intact to LT/PP bilaterally upper and lower extremities Deep Tendon Reflex: 2+ symmetric in the upper/lower extremities, Babinski - down going Finger to nose, rapid alternating movements intact without tremor, no dysdiadochokinesia Gait: pt reports ambulating to the bathroom without assistance. Result Diagrams: 07/05/19 07:37 07/05/19 07:37 Additional Lab and Data: Laboratory Tests 07/03/19 07/03/19 18:18 18:18 Fluid Source Cerebral spinal Fluid Color Colorless Fluid Appearance Cloudy Fluid WBC 1552 H* Fluid RBC 32 Fluid Tot Cell Count 100 Fluid Neutrophils 74 Fluid Lymphocytes 6 Fluid Monocytes 20 CSF Glucose 54 CSF Total Protein 149 H Microbiology and Other Data: Microbiology 07/03/19 18:18 CSF Gram Stain (Tube 3) - Preliminary Cerebral Spinal Fluid Assessment/Plan 1. H. influenza meningitis. On Rocephin. Dr. Adkins is following. She will need total of 12 days of antibiotic therapy. She is clinically improving. She has no neurological sequela related to the meningitis. Her father will be coming in today from [facility]. Please contact me if she has worsening headaches. I encouraged her to get OOB and walk around. We discussed ways to differentiate a post-lp vs. meningitis related headache. She denied any positional induced headaches. The bedside nurse agreed to get the patient some coffee. I also encouraged her to contact [facility] so she can arrange to retake the examination and submit the essay that were due today and late last week. No further neurological work-up is recommended.
[2019-07-05 14:59] VITALS: BP 112/71
--- NOTE | 2019-07-06 01:40 | DS ---
DISCHARGE SUMMARY: DATE OF ADMISSION: 07/03/19 DATE OF DISCHARGE: 07/05/19 ADMITTING PROVIDER: Frannie Balderas MD. ATTENDING PHYSICIAN ON THE DAY OF DISCHARGE: Dean Sparks MD. PRIMARY CARE PHYSICIAN: [facility]. CONSULTING NEUROLOGIST: Dr. Monique and Dr. Aram Parker. CONSULTING INFECTIOUS DISEASE: Dr. George Reno. CHIEF COMPLAINT: Severe headache and fever. PRINCIPAL DIAGNOSIS: Meningitis secondary to Haemophilus influenzae resulting in sepsis. HISTORY OF PRESENT ILLNESS AND HOSPITAL COURSE: Tata Wharton is a 23-year- old female with no past medical history. Please see H and P of Dr. Frannie Balderas for details, but briefly she developed headache, fever and she also has stiffness in her neck. She had been evaluated by [facility] and prescribed some oral antibiotics. At [facility], she had leukocytosis, fever, tachycardia and meningeal signs and LP was performed, which demonstrated pleocytosis with white count 1552, 74% neutrophils, 6% leukocytes. She has had glucose of 54, total protein was 149, RBCs 32. She was started on vancomycin, ceftriaxone, and valacyclovir. Her cultures ultimately did grow Haemophilus influenzae in 3/4 blood cultures and also in the CSF spinal fluid. She defervesced, tachycardia improved. She also got empirically dexamethasone before cultures returned. Neurology and Infectious Disease consulted on the case; and, once it was clear that H. influenzae was the causative organism, antibiotics were narrowed to just ceftriaxone 2 g q.12 with a planned total course of 14 days. A midline was placed to continue the rest of the antibiotic course. Additional workup included a chest x-ray, which showed no acute process. CT of the brain, which demonstrated no intracranial mass or hemorrhage. Studies still pending at the time of discharge include CSF herpes simplex virus PCR and Lyme [place] STATION study. She did not have any other peripheral stigmata suggestive of infective endocarditis and no murmur was detected. DISCHARGE MEDICATIONS: Include ceftriaxone 2 g twice a day for 11 more days to complete a 14-day course. DISCHARGE DIET: Unrestricted. FOLLOWUP: Please follow up with primary care doctor, she goes to [facility] , within 7 days of discharge. She should also call the office of Dr. George Reno of Infectious Disease especially if symptoms are worsening. DISPOSITION: Home. CONDITION: Improved. TIME SPENT ON DISCHARGE: 35 minutes. [id number]/CPS #: [id number] MTDD
[2019-07-06 15:07] LABS: HSV 1 PCR, CSF Negative (Negative); HSV 2 PCR, CSF Negative (Negative)
== END 2019-07-05 19:56 | disposition home or self-care (01) | DRG 720 ==
LOC: ED 16:18 → MED 20:06
PROVIDERS: ADMIT Student in an Organized Health Care Education/Training Program; ATTEND Internal Medicine
PROC: 009U3ZX Drainage of Spinal Canal, Percutaneous Approach, Diagnostic (ICD-10-PCS; principal; 2019-07-03)
DX: A41.3 Sepsis due to Hemophilus influenzae (principal); G00.0 Hemophilus meningitis
CPT/HCPCS: 36415; 70470; 71045; 80048; 80053; 80307; 81003; 81015; 82945; 84157; 84702; 85025; 86140; 86618; 87040; 87070; 87077; 87185; 87186; 87205; 87529; 89051; 96374; 96375; 99285; A9270-GY; J0696; J1100; J1200; J1644; J2765; J3370; Q9967

== ENCOUNTER 2019-07-07 05:00 | Emergency (ER) | payer BC ==
--- NOTE | 2019-07-07 05:45 | ED ---
Complex/Multi-Sys Presentation - HPI Summary HPI Summary: The patient is a 23 y/o F presenting to [facility] accompanied by father with a chief complaint of sudden onset diaphoresis and chest discomfort this morning. She was recently diagnosed with bacterial meningitis on 07/03/19, and she has been taking her antibiotics through a midline (right arm) following discharge from [facility] [place] the night of 07/05/19. She states that she has been experiencing more frequent headaches and photophobia since then. This morning she woke up and had right anterior chest discomfort that seemed to go into the shoulder blade, but she denies any SOB or pain with breathing. She attempted to fall back asleep but was unable to secondary to the pain. Initially she did not have a headache, but while on her way here, she developed nausea, vomiting, and a headache. Currently, her symptoms are rated 4/10 in severity. She denies any fevers since being discharged. PMHx: bacterial meningitis, headaches. Nonsmoker , no EtOH, no substance use. Medications reviewed. Allergies noted. - History Of Current Complaint Chief Complaint: EDGeneral Time Seen by Provider: 07/07/19 05:33 Hx Obtained From: Patient Onset/Duration: Sudden Onset, Lasting Hours, Still Present Timing: Hours Severity Currently: Moderate Severity Initially: Moderate Location: Pain At: - right chest, left shoulder blade, headache Character: Migraine Aggravating Factor(s): nothing Alleviating Factor(s): nothing Associated Signs And Symptoms: Positive: Chest Pain - right anterior into right shoulder, Nausea, Vomiting, Diaphoresis, Other - headache; Negative: pain with breathing. Negative: SOB, Fever - Allergies/Home Medications Allergies/Adverse Reactions: Allergies Allergy/AdvReac Type Severity Reaction Status Date / Time No Known Allergies Allergy Verified 11/27/16 10:01 PMH/Surg Hx/FS Hx/Imm Hx Endocrine/Hematology History: Denies: Hx Diabetes, Hx Thyroid Disease Cardiovascular History: Denies: Hx Hypertension, Hx Pacemaker/ICD, Hx Peripheral Vascular Disease History: Denies: Hx Renal Disease Musculoskeletal History: Denies: Hx Arthritis, Hx Osteoporosis Sensory History: Reports: Hx Contacts or Glasses Denies: Hx Cataracts, Hx Glaucoma, Hx Hearing Aid Opthamlomology History: Reports: Hx Contacts or Glasses Denies: Hx Cataracts, Hx Glaucoma Neurological History: Reports: Hx Headaches, Other Neuro Impairments/Disorders - bacterial meningitis Denies: Hx Seizures, Hx Transient Ischemic Attacks (TIA) Psychiatric History: Denies: Hx Anxiety, Hx Depression, Hx Panic Disorder - Surgical History Surgical History: None Surgery Procedure, Year, and Place: none Infectious Disease History: No Infectious Disease History: Denies: Traveled Outside the [place] in Last 30 Days - Family History Known Family History: Negative: Cardiac Disease - Social History Alcohol Use: None Hx Substance Use: No Substance Use Type: Reports: None Hx Tobacco Use: No Smoking Status (MU): Never Smoked Tobacco Review of Systems Positive: Skin Diaphoresis. Negative: Fever Positive: Chest Pain - discomfort in the right anterior and right shoulder blade Negative: Shortness Of Breath, Other - pain with breathing Positive: Vomiting, Nausea Positive: Headache All Other Systems Reviewed And Are Negative: Yes Physical Exam - Summary Physical Exam Summary: Appearance: Well-appearing, Well-nourished, lying in bed comfortably Skin: Warm, dry, no obvious rash Eyes: sclera anicteric, no conjunctival pallor ENT: mucous membranes moist, pharynx appears normal Neck: Supple, nontender Respiratory: Clear to auscultation, no signs of respiratory distress Cardiovascular: Normal S1, S2. No murmurs. Normal distal pulses in tibial and radial bilaterally. Abdomen: Soft, nontender, normal active bowel sounds present Musculoskeletal: Normal, Strength/ROM Intact Extremities: entrance site of midline is free from redness and swelling Neurological: A&Ox3, awake and alert, mentation is normal, speech is fluent and appropriate Psychiatric: affect is normal, does not appear anxious or depressed Triage Information Reviewed: Yes Vital Signs On Initial Exam: Initial Vitals Temp Pulse Resp BP Pulse Ox 97.2 F 82 20 142/109 97 07/07/19 05:00 07/07/19 05:00 07/07/19 05:00 07/07/19 05:00 07/07/19 05:00 Vital Signs Reviewed: Yes Procedures - Sedation Patient Received Moderate/Deep Sedation with Procedure: No Diagnostics - Vital Signs Vital Signs Temp Pulse Resp BP Pulse Ox 07/07/19 05:00 97.2 F 82 20 142/109 97 - Laboratory Result Diagrams: 07/07/19 06:18 07/07/19 06:18 Lab Statement: Any lab studies that have been ordered have been reviewed, and results considered in the medical decision making process. - Radiology CXR Radiology Interpretation Completed By: ED Physician Summary of Radiographic Findings: No acute process. ED physician has reviewed and interpreted this imaging report. Pending official read. - EKG 0519 Cardiac Rate: NL - 70 BPM EKG Rhythm: Sinus Rhythm Summary of EKG Findings: NSR at 70 BPM, P waves, QRS complex, and T waves are within normal limits, T waves and intervals are normal, no ischemic changes. This is a normal EKG. ED physician has reviewed and interpreted this EKG. Re-Evaluation - Re-Evaluation First Eval Re-Evaluation Time: 09:10 Change: Worse Comment: She has a headache and a temperature of 99.4F, so we will order Tylenol Second Eval Change: Unchanged Comment: She is still experiencing chest pain, so we will order a CTA Complex Multi-Symp Course/Dx Course Of Treatment: 23 y/o F recently diagnosed with bacterial meningitis on who is medication complaint presenting with an episode of diaphoresis, right chest discomfort, right shoulder pain, headache, nausea, and vomiting onset early this morning. Denies fever. Physical exam is benign for acute findings; the entrance site for the midline is free of redness and swelling. In the ED course, the patient was given fluids. CXR reveals no acute process. The patient is a sign-out from Dr. Benigno Baird MD, to Dr. Dru Desouza MD, at change of shift at 0700 on 07/07/2019, pending labs, RUE US, and disposition. - Diagnoses Provider Diagnoses: Headache, Chest pain Discharge ED - Sign-Out/Discharge Documenting (check all that apply): Sign-Out Patient Signing out patient TO: Dru Desouza - Patient is a sign-out to Dr. Dru Desouza MD, at 0700 on 07/07/2019, pending labs, RUE US, and disposition. - Discharge Plan Condition: Stable Disposition: HOME Patient Education Materials: Chest Pain (ED), Bacterial Meningitis (ED) Referrals: [facility] [Outside] - 3 Days Additional Instructions: Follow up with your primary care provider in 2-3 days. Return to the emergency department for any new or worsening symptoms. - Billing Disposition and Condition Condition: STABLE Disposition: Home - Attestation Statements Document Initiated by Scribe: Yes Documenting Scribe: Leslie Carcamo Provider For Whom Scribe is Documenting (Include Credential): Dr. Benigno Baird MD Scribe Attestation: I, leroy Lovingibed for Dr. Benigno Baird MD on 07/10/19 at 0352. Scribe Documentation Reviewed: Yes Provider Attestation: The documentation as recorded by the Leslie gallegos accurately reflects the service I personally performed and the decisions made by me, Dr. Benigno Baird MD Status of Scribe Document: Viewed
[2019-07-07] MEDS ORDERED: NS 0.9% 1000 ML** 1,000 ML IV ONE ×2 (05:47→11:50)
[2019-07-07 06:50] LABS: Urine Appearance Clear; Urine Bilirubin Negative (Negative); Urine Blood Negative (Negative); Urine Color Straw; Urine Glucose Negative (Negative); Urine Ketones Negative (Negative); Urine Nitrite Negative (Negative); Urine Protein Negative (Negative); Urine Specific Gravity 1.004 (1.010-1.030); Urine Urobilinogen Negative (Negative)
[2019-07-07 06:57] LABS: ABS Lymphocytes 3.9 10^3/ul (1.0-4.8); ABS Monocytes 0.5 10^3/ul (0-0.8); ABS Neutrophils 3.9 10^3/ul (1.5-7.7); Eosinophil % 0.6 %; Hematocrit 36 % (35-47); Hemoglobin 12.3 g/dL (12.0-16.0); Lymphocyte % 46.7 %; Mean Corpuscular HGB Conc 34 g/dL (31-36); Mean Corpuscular Hemoglobin 31 pg (27-31); Mean Corpuscular Volume 90 fL (80-97); Mean Platelet Volume 8.7 fL (7.4-10.4); Nucleated Red Blood Cells % 0.1; Platelet Count 262 10^3/uL (150-450); Red Blood Count 4.03 10^6 /uL (3.70-4.87); Red Cell Distribution Width 13 % (10-15); White Blood Count 8.4 10^3/uL (3.5-10.8)
[2019-07-07 07:00] LABS: ALT 59 U/L (7-52); AST 30 U/L (13-39); Albumin 3.5 g/dL (3.2-5.2); Albumin/Globulin Ratio 1.5 (1-3); Alkaline Phosphatase 56 U/L (34-104); Anion Gap 9 mmol/L (2-11); Blood Urea Nitrogen 6 mg/dL (6-24); C Reactive Protein 22.96 mg/L (<8.01); CO2 Carbon Dioxide 24 mmol/L (22-32); Calcium 8.7 mg/dL (8.6-10.3); Chloride 107 mmol/L (101-111); EGFR African American 134.4 (>60); EGFR Non-African American 111.1 (>60); Globulin 2.4 g/dL (2-4); Glucose 85 mg/dL (70-100); Potassium 3.5 mmol/L (3.5-5.0); Sodium 140 mmol/L (135-145); Total Protein 5.9 g/dL (6.4-8.9)
[2019-07-07 07:07] LABS: HCG Pregnancy < 0.60 mIU/mL
--- NOTE | 2019-07-07 07:10 | ED ---
Progress - Progress Note Progress Note: The patient is a sign-out from Dr. Benigno Baird MD, to Dr. Dru Desouza MD, at change of shift at 0700 on 07/07/2019, pending labs, Right Upper Extremity ultrasound, and disposition. Blood work without significant abnormality except for lactic acid of 2.6, ALT of 59, CRP of 22.96, and total protein of 5.9. Urinalysis negative for infection. 0910 - Patient reports headache and has temperature of 99.4F, so I will order Tylenol Right Humerus ultrasound is negative for deep vein thrombosis but positive for superficial thrombosis in the basilic vein. 0948 - She is still experiencing chest pain, so I will order a Chest/Thorax CTA Chest/Thorax CTA is negative. 1139 - Consulted with Dr. Monique, neurology, and he will come see the patient in the ED; after consultation, Dr. Monique recommends speaking with anesthesia 1245 - Dr. Delarosa, anesthesia, will come speak with the patient and perform a blood patch 1330 - Dr. Vazquez, anesthesia, came and performed the blood patch on the patient; she will reassess the patient in an hour 1500 - Dr. Vazquez came an revaluated the patient; she states that the patient is safe for discharge since she is not in any pain now - Results/Orders Results/Orders: Right Upper Extremity Ultrasound Impression: Impression: 1. Nonocclusive superficial thrombophlebitis at the RIGHT cephalic vein at the level of the distal humerus. 2. No RIGHT upper extremity DVT evident with assessment of the mid humeral level basilica and brachial veins limited due to bandage over the PICC line. 3. The PICC line is not visible on the chest radiograph of the same date suggesting it may be coiled within the veins of the RIGHT upper arm. Correlate with clinical assessment and consider RIGHT upper arm radiographs for further assessment. ED physician has reviewed this report. Chest/Thorax CTA Impression: No pulmonary embolus is noted. No evidence of aortic dissection is noted. ED physician has reviewed this report. Re-Evaluation - Re-Evaluation First Eval Re-Evaluation Time: 09:10 Change: Worse Comment: She has a headache and a temperature of 99.4F, so we will order Tylenol Second Eval Re-Evaluation Time: 09:48 Change: Unchanged Comment: She is still experiencing chest pain, so we will order a CTA Third Eval Re-Evaluation Time: 11:41 Change: Unchanged Comment: Since she is still experiencing headaches, I consulted Dr. Monique, and I updated the patient in that he is coming to the ED to see her. Fourth Eval Re-Evaluation Time: 15:15 Change: Improved Comment: She has greatly improved following the blood patch performed by Dr. aVzquez. Course/Dx - Course Course Of Treatment: This patient is a 23-year-old female who was signed out from Dr. Cardozo at shift change. He reports that the patient is complaining of right-sided chest pain with radiation to the right arm. The patient has a midline for IV antibiotics in the right upper extremity. Dr. Sparks requested to follow with the ultrasound of the right upper extremity. Right upper extremity ultrasound is negative for DVT. She has a superficial thrombosis in the basilic vein. However, the patient is complaining of right-sided chest pain. The chest x-ray is negative for acute pathology. Therefore, a chest CTA he is ordered to rule out a PE. The patient was recently diagnosed with bacterial meningitis, and she is taking Rocephin 2 g twice a day. Blood test results without any significant abnormality, except for lactic acid 2.6, CRP of 22.9. Chest CTA: Negative for PE. Patient continued to have a headache. She reports that is worse when she ambulates. Therefore, I discussed the case with Dr. Monique who will be consulting for this patient. Dr. Monique recommends a blood patch. I discussed the case with Dr. Delarosa, and he will consult for this patient. Dr. Vazquez came and she did a blood patch, We observed the patient for one hour and now the patients pain has resolved. Patient is eating and drinking w/o any nausea or vomiting. I discussed all the findings and test results with the patient. Patient was instructed to return to the emergency room immediately if any of the symptoms return or worsen. Plan of care was discussed with the patient, and she understands and agrees. All questions were answered at patient satisfaction. There were no further complaints or concerns. Lung exam before discharge: CTA B/L. Good air exchange. No wheezing or crackles heard. CVS: S1 and S2 present. No murmurs appreciated. Patient is alert and oriented x 3. Patient is hemodynamically stable. Patient will be discharged home with follow up PCP in the next 2-3 days. - Diagnoses Provider Diagnoses: Headache, Chest pain - Provider Notifications Discussed Care Of Patient With: Hallie Monique - neurology Time Discussed With Above Provider: 11:39 Instructed by Provider To: MD Will See In ED - Dr. Monique will come see the patient in the ED. Dr. Monique recommends anesthesia consult. I spoke with Dr. Delarosa from anesthesia, and he will come see the patient and perform a blood patch. Dr. Vazquez performed the blood patch, and following reevaluation, the patient is safe for discharge Discharge ED - Sign-Out/Discharge Documenting (check all that apply): Patient Departure - Patient will be discharged home., Receiving Sign-Out Receiving patient FROM: Benigno Baird - Patient is a sign-out from Dr. Benigno Baird MD, at 0700 on 07/07/2019, pending labs, Right Upper Extremity ultrasound, and disposition. - Discharge Plan Condition: Stable Disposition: HOME Patient Education Materials: Chest Pain (ED), Bacterial Meningitis (ED) Referrals: [facility] [facility] [place]] - 3 Days Additional Instructions: Follow up with your primary care provider in 2-3 days. Return to the emergency department for any new or worsening symptoms. - Attestation Statements Document Initiated by Scribe: Yes Documenting Scribe: Leslie Carcamo Provider For Whom Jamesibe is Documenting (Include Credential): Dr. Dru Desouza MD Scribe Attestation: Leslie Lazo, scribed for Dr. Dru Desouza MD on 07/07/19 at 1741. Status of Scribe Document: Ready Procedures - Sedation Patient Received Moderate/Deep Sedation with Procedure: No
[2019-07-07] MEDS ORDERED: Acetaminophen TAB* 325 MG PO ONE ×2 (09:10→16:18)
[2019-07-07] MEDS ORDERED: Iohexol 350* (CONTRAST) 500 ML MDV IV ONE (10:04)
[2019-07-07] MEDS ORDERED: cefTRIAXone(*) 2 GM in NS 0.9% 100 ML* 100 ML IVPB ONE (10:04)
--- NOTE | 2019-07-07 14:48 | CONS ---
NEUROLOGY CONSULTATION REPORT: DATE OF CONSULT: 07/07/19 CONSULTING PROVIDER: Dr. Desouza. REASON FOR CONSULT: Worsening headaches and chest pain, CHIEF COMPLAINT: Chest pain on the right side with worsening headaches upon standing. HISTORY OF PRESENT ILLNESS: Ms. 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 The patient stated that she went home and had the same mild headache. On Friday she helped around the house by doing laundry and then [facility] and [facility]. While at [facility], the patient developed severe headaches. The headache is described as holocephalic, radiates to the posterior area, 10/10 in severity, that improved when she went home and laid flat. The patient was having trouble sleeping at night due to chest pain as well as had an episode of nausea and vomiting. She decided to come to the ER for further evaluation. Today, the patient stated that her headache currently is 3/10 in severity. It is mostly bifrontal. It is associated with severe photophobia. She denied phonophobia. She feels nauseated. The headache is extremely excruciating when she stands up and ambulates. This is not a new headache but it has definitely changed in intensity after the recent discharge. She denied any visual disturbance. She denied any focal weakness or paresthesias. The patient continues to complain of mild substernal chest pain that is constant. The chest pain started before she vomited early this morning. Chest pain is nonradiating. CTA of the head and neck was done and showed no evidence of aortic dissection or pulmonary embolism. An EKG was done and showed normal sinus rhythm. The patient also had a venous Doppler study of the right upper extremity that showed no right upper extremity DVT, but there is a nonocclusive superficial thrombophlebitis at the right cephalic vein at the level of the distal humerus. There was a report that the PICC line is not visible on the chest radiograph of the same date suggesting it may be coiled within the veins of the right upper arm. Defer further management to the primary team. PAST MEDICAL HISTORY: Recent diagnosis of H influenzae, on antibiotic therapy with Rocephin for a total of 12 days. The patient has an appointment to follow up with Dr. Reno next week. MEDICATIONS: Currently receiving Rocephin. She is on also control pills. ALLERGIES: No known drug allergies. FAMILY HISTORY: No family history of stroke or seizures. 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 There is no history of tobacco or alcohol abuse. REVIEW OF SYSTEMS: A 14-point review of systems was obtained, otherwise negative except as mentioned in HPI. PHYSICAL EXAM: Vitals: Temperature of 99.3, pulse of 62, respiratory rate of 17, oxygen saturation 99, blood pressure of 122/84. General: Well-nourished, well- developed female in no acute distress. The room is dark due to photophobia. The lights are off due to the patient's photophobia. Head: Atraumatic, normocephalic. No nuchal rigidity. Negative Brudzinski and Kernig signs. Eyes: Conjunctiva/corneae are clear. Funduscopic examination showed normal on disc margins bilaterally. Cardiovascular: Regular rate rhythm with normal S1, S2. Chest: Clear to auscultation bilaterally with no wheezing rhonchi. She had no tenderness to palpation around the right chest wall. Her father was at bedside. She had no reproducible pain. Extremities: Normal range of motion with no cyanosis or edema. Skin: No skin lesions or laceration. The area around the midline is clean with no evidence of erythema or infections around the right proximal upper extremity. Psych: Normal affect and mood. Easy to establish rapport. Very pleasant. Neurological Examination : Mental status: Awake, alert, and oriented to person, place, time, and general circumstances. Speech and language including repetition and comprehension were assessed and found to be normal. Cranial Nerves: Pupils equal round reactive to light. Extraocular muscles are intact. Sensation is intact throughout. There is no facial asymmetry. Tongue is symmetric and midline with no atrophy or fasciculation. Extremities: Normal tone and bulk throughout. She is able to move all 4 extremities symmetrically with no evidence of weakness, 5/5 strength throughout. Sensation is intact to light touch and pinprick throughout. Coordination: Normal [id number] and heel-to -vieira testing bilaterally. Gait: Normal stance, normal gait, no ataxia. Initially, the patient was laid supine. Her headache was a 2/10 in severity. When the patient stood up, she developed severe excruciating pain, graded as 7-8 /10. The patient became emotional and started crying. She was immediately laid back into bed. ASSESSMENT AND RECOMMENDATION: Ms. Tata Wharton is a 23-year-old female with a recent diagnosis of Haemophilus influenzae meningitis, who underwent a lumbar puncture on 07/03/19. The patient is complaining of a headache. She continues to have headaches today. The headaches are positional related and worse when standing. 1. Suspect post lumbar puncture low CSF headache given the clinical symptomatology. The patient does have a baseline headache due to meningitis but it definitely has exacerbated when standing. I suspect that her increase in activities at home yesterday may have caused the low CSF headache after the lumbar puncture done on 07/03/19. Recommendation: I recommend consulting Anesthesia to evaluate for a blood patch. I also consult IR if there are doing blood patch today. Also, I recommend continued acetaminophen 650 mg every 8 hours as needed for headaches. We could also add the magnesium 400 mg daily to help with any possible underlying migraine-like headaches. I will continue IV fluids. I encouraged the patient to continue her caffeine intake until the headaches improve. 2. Nonspecific chest pain. I defer further treatment recommendation to the primary team, however, reviewing the venous Doppler study, there is a concern that the PICC is not visible on the chest radiography of the same date suggesting it may be coiled within the vein of the right upper arm. I discussed this with Dr. Desouza who informed me that the patient has PICC not a midline; therefore, it will not be seen on XRAY. Again further evaluation is deferred to the ER staff. Could this be the explanation of her chest pain. No need for inpatient hospitalization if the blood patch can be done in the ED. The patient would prefer not to be admitted to the hospital. Continue on the antibiotic therapy as recommended by Dr. Reno. I do not suspect the patient had any intracranial abnormalities such as a deep vein thrombosis that would explain her headaches given that the headaches are the same as the previous headaches but worsened when she is standing, "these are positional dependent headaches." Please contact me for any questions or concerns. I will sign off. The patient should follow up with Neurology within 4-6 weeks. [id number]/[facility] #: [id number] [facility]
[2019-07-07] MEDS ORDERED: Acetaminophen TAB* 325 MG ONE (16:16)
[2019-07-07 16:23] VITALS: BP 127/84
== END 2019-07-07 15:35 | disposition home or self-care (01) ==
LOC: ED 05:00
DX: R51 Headache (principal); R07.9 Chest pain, unspecified
CPT/HCPCS: 36415; 71046; 71275; 80053; 81003; 83605; 84702; 85025; 86140; 87040; 93005; 96361; 96365; 96366; 99283; A9270-GY; J0696; Q9967